=== PATIENT | male | born 1955 | race Hispanic/Latino ===

== ENCOUNTER 2020-07-23 12:40 | Emergency (ER) | payer MEDICARE ==
[~2020-07-23] VITALS: Ht 157.5 cm; Wt 88.1 kg
[2020-07-23] MEDS ORDERED: ONDANSETRON HCL INJ 2MG/ML 2ML 2 MG/ML VIAL IV PRN (13:30)
[2020-07-23] MEDS ORDERED: SODIUM CHLORIDE FLUSH 10 ML SYR INJ PRN (13:30)
[2020-07-23] MEDS ORDERED: VANCOMYCIN 1GM/NS 250 ML 250 ML IV ONE (15:45)
[2020-07-23] MEDS ORDERED: PIPER-TAZ 3.375 GM 50 ML IV ONE (15:45)
[2020-07-23] MEDS ORDERED: LEVOFLOXACIN250 MG PO (17:33)
[2020-07-23] MEDS ORDERED: CLINDAMYCIN HC150 MG PO (17:36)
[2020-07-23 18:03] VITALS: BP 128/63
[2020-07-23] MEDS ORDERED: LANTUS 3ML100 UNITS/ (19:24)
[2020-07-23] MEDS ORDERED: GABAPENTIN300 MG PO (19:24)
[2020-07-23] MEDS ORDERED: CEPHALEXIN500 MG PO (19:24)
[2020-07-23] MEDS ORDERED: AMLODIPINE BESY10 MG PO (19:24)
[2020-07-23] MEDS ORDERED: ASPIRIN EC81 MG PO (19:24)
[2020-07-23] MEDS ORDERED: PREDNISONE5 MG PO (19:24)
[2020-07-23] MEDS ORDERED: PROGRAF0.5 MG PO (19:24)
[2020-07-23] MEDS ORDERED: FENOFIBRATE145 MG (19:24)
[2020-07-23] MEDS ORDERED: TRAZODONE HCL50 MG PO (19:24)
[2020-07-23] MEDS ORDERED: FUROSEMIDE80 MG (19:24)
[2020-07-23] MEDS ORDERED: CLOTRIMAZOLE10 MG (19:24)
[2020-07-23] MEDS ORDERED: BACTRIM DS TAB1 EACH PO (19:24)
[2020-07-23] MEDS ORDERED: TYLENOL # 31 EA (19:24)
[2020-07-23] MEDS ORDERED: COLACE100 MG PO (19:24)
[2020-07-23] MEDS ORDERED: FAMOTIDINE20 MG PO (19:24)
[2020-07-23] MEDS ORDERED: CELLCEPT250 MG (19:24)
== END 2020-07-23 17:51 | disposition home or self-care (01) ==
LOC: FSED 13:39
DX: E11.621 Type 2 diabetes mellitus with foot ulcer (principal); L97.529 Non-pressure chronic ulcer of other part of left foot with unspecified severity; T25.322A Burn of third degree of left foot, initial encounter; X11.8XXA Contact with other hot tap-water, initial encounter; I10 Essential (primary) hypertension; Z94.0 Kidney transplant status
CPT/HCPCS: 16020; 73630; 80053; 85025; 99283; J2543; J3370